=== PATIENT | male | born 2000 | race Caucasian/White ===

== ENCOUNTER 2020-08-28 10:47 | Emergency (ER) | payer BC ==
[~2020-08-28] VITALS: Ht 182.9 cm; Wt 50.2 kg
[2020-08-28 12:53] LABS: BASOPHILS ABSOLUTE AUTO 0.04 K/mm3 (0.00-0.23); BASOPHILS PERCENT AUTO 1 % (0-2); EOSINOPHILS ABSOLUTE AUTO 0.04 K/mm3 (0.00-0.68); EOSINOPHILS PERCENT AUTO 1 % (0-6); Hematocrit 45.9 % (37.0-53.0); Hemoglobin 15.8 g/dL (13.5-17.5); IMMATURE GRAN ABSOLUTE AUTO 0.02 K/mm3 (0.00-0.10); IMMATURE GRAN PERCENT AUTO 0 % (0-1); LYMPHOCYTES ABSOLUTE AUTO 1.14 K/mm3 (0.84-5.20); LYMPHOCYTES PERCENT AUTO 18 % (21-46); MONOCYTES ABSOLUTE AUTO 0.45 K/mm3 (0.16-1.47); MONOCYTES PERCENT AUTO 7 % (4-13); Mean Corpuscular HGB 28.6 pg (26.0-34.0); Mean Corpuscular HGB Conc 34.4 g/dL (31.5-36.5); Mean Corpuscular Volume 83 fL (80-100); Mean Platelet Volume 11.1 fL (9.1-12.4); NEUTROPHILS ABSOLUTE AUTO 4.74 K/mm3 (1.96-9.15); NEUTROPHILS PERCENT AUTO 74 % (41-73); Platelet Count 221 K/mm3 (150-400); RDW Coefficient Variation 13.1 % (11.7-14.2); RDW Standard Deviation 40.1 fL (35.1-46.3); Red Blood Cell Count 5.52 M/mm3 (4.30-5.90); White Blood Cell Count 6.43 K/mm3 (4.00-11.30)
[2020-08-28 13:22] LABS: Alanine Aminotransfer (ALT/SGP 21 U/L (12-78); Albumin, Blood 4.7 g/dL (3.4-5.0); Albumin/Globulin Ratio 1.4 (0.8-1.8); Alk Phos 85 U/L (58-237); Anion Gap 6 mmol/L (6-16); Aspartate Aminotrans (AST/SGOT 8 U/L (12-37); Bilirubin, Total 0.7 mg/dL (0.1-1.0); Blood Urea Nitrogen 13 mg/dL (8-21); Bun/Creatinine Ratio 14.6 (12.0-20.0); CO2, Blood 25 mmol/L (21-32); Calcium, Blood 9.4 mg/dL (8.5-10.1); Chloride, Blood 108 mmol/L (98-108); Creatinine, Blood 0.89 mg/dL (0.60-1.20); Globulin, Blood 3.3 g/dL (2.2-4.0); Glomerular Filtration Rate >60 (60-); Glucose, Blood 91 mg/dL (70-99); Potassium, Blood 3.7 mmol/L (3.5-5.5); Sodium, Blood 139 mmol/L (136-145)
[2020-08-28 13:53] LABS: U Amphetamine Screen Not Detected; U Barbituate Screen Not Detected; U Benzodiazapine Screen Not Detected; U Buprenorphine Screen Not Detected; U Cannabinoids Screen DETECTED; U Cocaine Screen Not Detected; U Methadone Screen Not Detected; U Methamphetamine Screen Not Detected; U Opiates Screen Not Detected; U Oxycodone Screen Not Detected; U Phencyclidine Screen Not Detected; U Propoxyphene Screen Not Detected
== END 2020-08-28 15:18 | disposition home or self-care (01) ==
LOC: ER 10:47
PROVIDERS: Emergency Medicine
DX: R41.82 Altered mental status, unspecified (principal)
CPT/HCPCS: 36415; 80053; 84443; 85025; 93005; 93010; 99285-25

== ENCOUNTER 2022-04-18 10:05 | Inpatient (IN) | payer BC ==
[~2022-04-18] VITALS: Ht 182.9 cm; Wt 55.0 kg
[2022-04-18 12:00] LABS: BASOPHILS ABSOLUTE AUTO 0.04 K/mm3 (0.00-0.23); BASOPHILS PERCENT AUTO 1 % (0-2); EOSINOPHILS ABSOLUTE AUTO 0.03 K/mm3 (0.00-0.68); EOSINOPHILS PERCENT AUTO 1 % (0-6); Hemoglobin 16.3 g/dL (13.5-17.5); IMMATURE GRAN ABSOLUTE AUTO 0.01 K/mm3 (0.00-0.10); IMMATURE GRAN PERCENT AUTO 0 % (0-1); LYMPHOCYTES ABSOLUTE AUTO 1.57 K/mm3 (0.84-5.20); LYMPHOCYTES PERCENT AUTO 24 % (21-46); MONOCYTES ABSOLUTE AUTO 0.54 K/mm3 (0.16-1.47); MONOCYTES PERCENT AUTO 8 % (4-13); Mean Corpuscular HGB 28.7 pg (26.0-34.0); Mean Corpuscular HGB Conc 34.7 g/dL (31.5-36.5); Mean Corpuscular Volume 83 fL (80-100); Mean Platelet Volume 10.8 fL (9.1-12.4); NEUTROPHILS ABSOLUTE AUTO 4.28 K/mm3 (1.96-9.15); NEUTROPHILS PERCENT AUTO 66 % (41-73); Platelet Count 252 K/mm3 (150-400); RDW Coefficient Variation 13.1 % (11.7-14.2); RDW Standard Deviation 39.3 fL (35.1-46.3); Red Blood Cell Count 5.68 M/mm3 (4.30-5.90); White Blood Cell Count 6.47 K/mm3 (4.00-11.30)
[2022-04-18 12:26] LABS: Albumin, Blood 4.9 g/dL (3.4-5.0); Albumin/Globulin Ratio 1.4 (0.8-1.8); Bilirubin, Total 1.5 mg/dL (0.1-1.0); Bun/Creatinine Ratio 17.9 (12.0-20.0); Calcium, Blood 9.8 mg/dL (8.5-10.1); Creatinine, Blood 0.78 mg/dL (0.60-1.20); Globulin, Blood 3.6 g/dL (2.2-4.0); Potassium, Blood 3.6 mmol/L (3.5-5.5); Total Protein, Blood 8.5 g/dL (6.4-8.2)
--- NOTE | 2022-04-18 18:40 | NUR ---
PT ARRIVED TO UNIT FROM ED. TRANSFERRED WITH MINIMAL ASSISTANCE FROM [place] TO BED. THORAVENT TO L ANTERIOR CHEST WALL. DRESSING CDI. TELE SHOWS ST AT 108. VSS. CALL LIGHT IN REACH. LUNG DIM L SIDE. NO CREPITUS NOTED. DAD AT BEDSIDE.
--- NOTE | 2022-04-19 08:49 | NUR ---
SUMMARY PT MED X 1 FOR PAIN AT THORAVENT INSERT SITE TONIGHT.REPORTED SLEPT FAIRLY WELL. NO EVIDENCE OF AIR LEAK OR CREPITUS. DENIES SOB,WEAK DEEP BREATHE EFFORT,ENC TO USE I.S ENC PO FLUIDS,VOIDING WITHOUT DIFF.
--- NOTE | 2022-04-19 11:47 | NUR ---
pt to water seal per orders. DR EDUARDO IN TO SEE PT. CALL LIGHT IN REACH.
--- NOTE | 2022-04-19 16:37 | NUR ---
IMAGING IN TO SEE PT.
--- NOTE | 2022-04-19 17:21 | NUR ---
PLACED PT BACK TO SUCTION PER DR EDUARDO'S VERBAL ORDER. PT TO REMAIN ON SUCTION T/O NIGHT. REPEAT CHEST XR PLANNED FOR AM.
--- NOTE | 2022-04-19 17:29 | NUR ---
SUMMARY NO ACUTE CHANGES T/O SHIFT. PT SUCTION TURNED OFF THIS AM AND HAD CXR AT 1330, WHEN DR EDUARDO IN TO SEE PT AT 1445, IT WAS NOTED THAT CHEST TUBE WAS CLAMPED. UNCLAMPED CHEST TUBE AND PLACED TO WATER SEAL. REPEAT CHEST XR COMPLETED AT 1630. DR EDUARDO IN TO SEE PT THIS EVENING AND ORDERED PT TO BE PLACED BACK TO SUCTION THROUGH NIGHT. PLAN TO REPEAT CHEST XR IN AM. FATHER AT BEDSIDE. PT AGREEABLE WITH PLAN. PT MEDICATED ONCE WITH TYLENOL FOR POSTERIOR L LUNG PAIN. INCENTIVE SPIROMETER AT BEDSIDE, ENCOURAGED PT TO USE. CALL LIGHT IN REACH.
--- NOTE | 2022-04-19 23:00 | NUR ---
PTS RHYTHMN PER TELE @ 3727 SINUS.NOW SHOWING WANDERING ATRIAL PACEMAKER WITH RATE OF 71.I CONFIRMED WITH PCU WORD PROCESSING MACHINE OPERATOR. ON ADMITPT WAS SINUS TACH.I CALLED DOCTOR AND RECEIVED ORDERS FOR 12 LEAD EKG.PT ASYMPTOMATIC.
--- NOTE | 2022-04-20 02:54 | NUR ---
EKG WAS COMPLETED.HOWEVER,WAS DIFF TO OBTAIN DUE TO ARTIFACT/TREMOR. PCU REPEATED EKG-PT REPORTED HAD PREVIOUSLY BEEN TOLD HE HAD A MURMUR AND ALSO REPORTED TO POTATO BUCKER THAT HE WAS ALSO PREVIOUSLY TOLD THEY HAD DIFFICULTY WITH EKG DUE TO HIM BEING SO THIN.I HAD CRYSTAL ACCOUNTING SYSTEMS MANAGERCHIEF LIBRARIAN WORK WITH BLIND REVIEW PER DR АНДРЕЙ WOLFE AND NO ACUTE CONCERNS NOTED. PT REMAINS ASYMPTOMATIC.
--- NOTE | 2022-04-20 07:10 | NUR ---
SUMMARY CXR COMPLETED.PENDING RESULTS.PT SLEPT QUIETLY TONIGHT. CHEST TUBE PATENT TO SX,SCANT SEROUS DRNG IN PLEURAVAC,IS NOT NEW.
--- NOTE | 2022-04-21 05:05 | NUR ---
POD3 FOR A ANTERIOR THORAVENT PLACEMENT. VSS. LUNG MEJIAS REMAIN CLEAR. NO DRAINAGE NOTED FROM THE THORAVENT. PT HAS NOT REPORTED ANY CP OR SOB. C/T REMAINS ON SUCTION. NO CREPITUS NOTED. PT SLEPT ON AND OFF T/O THE NIGHT. TOLLERATING PO INTAKE W/O N/V. PLAN FOR PT TO WATERSEAL TODAY AND HAVE A REPEAT C-XRAY. MEDICATED FOR PAIN WITH TORADOL. THE PATIENT IS CURRENTLY RESTING IN BED, IN NO DISTRESS, CALL LIGHT IN REACH.
--- NOTE | 2022-04-21 05:39 | NUR ---
I/O PT DENIES URGE TO VOID T/O THE NIGHT, TOLLERATING PO INTAKE. WILL ENCOURAGE TO VOID AGAIN WHEN PT AWAKENS
--- NOTE | 2022-04-21 19:47 | NUR ---
ROUNDING PT REQUESTED TO ONLY BE ROUNDED ON AT 0000 AND 0400 WHEN RESPIRATORY ASSESSMENTS NEED TO BE DONE, PT PLANS TO CALL IF HE NEEDS ANYTHING BETWEEN THOSE TIMES
--- NOTE | 2022-04-21 20:04 | NUR ---
SHIFT SUMMARY PT HAS REMAINED STABLE T/O SHIFT. CT TO DRY SX, NO INCREASED SOB OR CREPITIS NOTED. WILL REPEAT CXR IN AM.
--- NOTE | 2022-04-22 04:54 | NUR ---
POD4 FOR THORAVENT PLACEMENT. VSS. PT HAS NO C/O SOB OR CP T/O THE NIGHT. ALL LUNG MEJIAS ARE CLEAR. PT REMAINED ON RA T/O THE NIGHT. NO NEW DRAINAGE NOTED IN THE PLEURAVAC. DRIED BLOOD NOTED AROUND THE THORAVENT, THIS HAS NOT INCREASED T/O THE NIGHT. PT SLEPT ON AND OFF, MEDICATED WITH TORADOL ONCE. VOIDING W/O DIFFICULTY AND TOLLERATING PO INTAKE. PLAN FOR PT TO HAVE A CHEST XRAY TODAY AND POTENTIALLY TRIAL CLAMPING THE TUBE. THE PATIENT IS CURRENTLY RESTING IN BED, IN NO DISTRESS, CALL LIGHT IN REACH
--- NOTE | 2022-04-22 14:43 | NUR ---
RESTING IN BED, DENIES ANY NEED FOR PAIN MEDS AT THIS TIME, DENIES ANY SOB, CHEST TUBE DSG C/D/I, REPORTS DISCOMFORT FROM CHEST TUBE IS "BETTER TODAY" NO ACUTE CHANGES THIS SHIFT.
--- NOTE | 2022-04-23 04:50 | NUR ---
GOAL UMPIRE SUMMARY NO ACUTE CHANGES THIS SHIFT. PT AAOX4 AND PLEASANT. INDEPENDENT IN RODRIGUEZ ASIDE FROM SOME ASSIST WITH CHEST TUBE. PT DENIES SOB TONIGHT. NO INCREASE TO CT DRAINAGE NOTED. CT STILL TO SUCTION. PT HAS DENIED THE NEED FOR PAIN MEDICATIONS TONIGHT. PT STATES PAIN LEVEL IS "THE BEST ITS BEEN SINCE I'VE BEEN HERE". PT HAS RESTED THROUGH THE NIGHT. REPEAT CXR LATER THIS AM. VSS, WILL CONTINUE TO MONITOR.
--- NOTE | 2022-04-23 12:35 | NUR ---
1145 dr Walters here, small air leak noted when patient asked to cough. new orders received.
--- NOTE | 2022-04-23 17:35 | NUR ---
PT HAS DENIED ANY NEED FOR PAIN MED THROUGHOUT SHIFT. DENIES SOB. THORAvent continues to wall suction.slight air leak noted only with cough
--- NOTE | 2022-04-24 05:12 | NUR ---
GENERATION ENGINEER SUMMARY PT PLACED ON WATER SEAL AT MIDNIGHT TONIGHT. NO CHANGES THUS FAR. PT CONTINUES TO DENY SOB OR PAIN. NO AIR LEAKS OR FLUID TIDALING NOTED TO PLEUREVAC. PT HAS RESTED MOST OF THE NIGHT WITH NO COMPLAINTS. VSS, WILL CONTINUE TO MONITOR.
--- NOTE | 2022-04-24 13:48 | NUR ---
DR TOBIAS HERE TO SPEAK WITH PATIENT AND PATIENTS FATHER REGARDING PTS NEED FOR TRANSFER TO [facility] FOR PLEURODISIS. CHEST TUBE RECONNECTED TO WALL SUCTION PER DR TOBIAS,
--- NOTE | 2022-04-24 17:09 | NUR ---
pt denies pain or sob throughout shift. left anterior chest tube in place to water seal. pt and his father in agreement with plan to transfer to another hospital to undergo pleurodesis when bed is available
--- NOTE | 2022-04-25 17:23 | NUR ---
SHIFT SUMMARY PT CHEST TUBE REMAINS ATTACHED TO SUCTION AT -20. NO BUBBLES IN AIR LEAK CHAMBER AND NO TIDLING SEEN. PT DENIES SOB, LUNG SOUNDS CLEAR T/O. STILL AWAITING TRANSFER TO [facility].
--- NOTE | 2022-04-26 04:33 | NUR ---
SHIFT SUMMARY PT RESTED WELL T/O NIGHT. AAOX4. DENIES DISCOMFORT T/O SHIFT. NO INCREASED SOB. CHEST TUBE TO WALL SUCTION, NO TIDLING/BUBBLING. INDEPENDENT IN ROOM. GOOD PO INTAKE + URINE OUTPUT. NO ACUTE CHANGES OVER NIGHT. VSS. PT CURRENTLY RESTING IN BED WITH CALL LIGHT IN REACH.
--- NOTE | 2022-04-26 19:29 | NUR ---
SHIFT SUMMARY NO CHANGES IN CHEST TUBE. -20 SUCTION, NO AIR LEAK SEEN AND NO TIDLING. PT CONTINUES TO DENY SOB AND LUNG SOUNDS CLEAR T/O. PLAN IS TO PUT CHEST TUBE TO WATER SEAL AT 1159 AND REPEAT XRAY IN THE MORNING.
--- NOTE | 2022-04-27 00:17 | NUR ---
PT PLACED ON WATERSEAL AT 2359 FOR A CXR THIS AM, EDUCATED ON NOTIFYING STAFF IF HE EXPERIENCES INCREASED SOB, CP, INCREASED WOB, OR OVERALL DISCOMFORT RELATED TO BREATHING. PT EXPRESSED UNDERSTANDING. CALL LIGHT IN REACH
--- NOTE | 2022-04-27 04:51 | NUR ---
POD9 FOR THROAVENT PLACEMENT, MINIMAL SS OUTPUT NOTED IN TUBING. PT HAS BEEN ON WATERSEAL SINCE 2358 FOR A REPEAT CXR THIS AM. PT HAS NOT REPORTED ANY INCREASE IN WOB OR SOB, SATS REMAINS >95% ON RA. GOOD AIR MOVEMENT HEARD IN ALL LUNG MEJIAS, NO CREPITOUS NOTED. PT SLEPT WELL T/O THE NIGHT. VOIDING AND PASSING STOOL W/O DIFFICULTY. TOLLERING PO INTAKE. ABULATING INDEPENDENTLY IN ROOM. NO C/O PAIN T/O THE NIGHT. PLAN OF CARE IS TO BE DETERMINED BY THIS AM'S XRAY. THE PATIENT IS CURRENTLY RESTING IN BED, IN NO DISTRESS, CALL LIGHT IN REACH.
--- NOTE | 2022-04-27 17:13 | NUR ---
SHIFT SUMMARY PATIENT ALERT AND ORIENTED THROUGHOUT SHIFT. CHEST TUBE TO LEFT UPPER CHEST WALL TO WATER SEAL, DC'D LATE IN AFTERNOON BY DR TOBIAS PULMONARY/MATERNAL FETAL PHYSICIAN. PATIENT TOLERATED REMOVAL WELL. DENIES SHORTNESS OF BREATH OR CHEST PAIN. REPORTS MILD SORENESS TO TUBE SITE AND MUSCULOSKELETAL STIFFNESS TO LEFT SHOULDER. MILD LEFT UPPER PNEUMO REMAINS UNCHANGED TO DR TOBIAS AND CXR AND CHEST CT. PLAN IS TO CHECK XR IN AM AND DISCHARGE PATIENT. HE WILL FOLLOW UP WITH LOCAL MECHANICAL ASSEMBLY IN ABOUT 1 WEEK WITH ANOTHER CXR. TOLERATING REGULAR DIET AND LIQUIDS. VOIDING WELL. INDEPENDENT IN ROOM. GAUZE DRESSING WITH TAPE OVER SITE.
--- NOTE | 2022-04-28 01:15 | NUR ---
PT CALLED [employer]ASTE DISPOSAL PLANT OPERATOR SAYING HE FELT LIKE HE HAS A RECURRENCE OF LUNG ISSUE THAT BROUGHT HIM TO HOSPITAL.WHEN I ENTERED ROOM,PT WAS RESTING ON R SIDE.REPORTS HE BELIEVES HE HAS "TAMAYO SIGN" STATED "ITS WHEN THERE IS CLICKING TO THE BREAST BONE WHEN I LAY ON MY BACK OR L SIDE." PT REPORTS WAS SAME AT HOME PRE ADMIT.PT ALSO REPORTS RECURRENCE L SIDED PAIN.PTS L LUNG SOUNDS DECREASED FROM PRIOR AUSCULTATION 2229.SEE VS.PT DENIES SOB,DOES NOT APPEAR TO HAVE ANY INCREASED WOB.SATS 100% ON R/A.RR 18.COLOR PALE PINK BASELINE.PT ALREADY HAD CXR ORDER FOR AM,SO WE CALLED IT UP SOONER,PLACED CONT PULSE OX AND NOTIFIED DR PATEL.DR PATEL READ CXR AND CONFIRMED RECURRENCE.PT IS TO REMAIN ON CONTINUOUS BIOX AND DR TO BE NOTIFIED IF SIGNS OF RESP DISTRESS. DR PATEL REPORTS SHE WILL NOTIFY DIRECTOR OF DIETARY
--- NOTE | 2022-04-28 07:45 | NUR ---
SUMMARY PT WTIH NO FURTHER CHANGES,SATS 97-100% NO RESP DISTRESS NOTED.FATHER AT BEDSIDE THIS AM. WAITING INFO PER PULMONARY.
--- NOTE | 2022-04-28 18:39 | NUR ---
SHIFT SUMMARY PATIENT ALERT AND ORIENTED THROUGHOUT SHIFT. PLACED ON 15L NONREBREATHER MASK THIS AM AND CXR CHECKED AT 3 PM. L APICAL PNEUMO HAD SLIGHTLY ENLARGED. DR STEPHEN PLACED A NEW CHEST TUBE IN SAME SITE PREVIOUS. PATIENT EXPERIENCED A VASOVAGAL RESPONSE WITH LIGHT HEADEDNESS, NAUSEA, HYPOTENSION, BRADYCARDIA, SWEATING. RESOLVED QUICKLY AFTER CHEST TUBE PLACEMENT COMPLETE. CHEST TUBE TO WALL SUCTION, TIDALING WITH NO AIR LEAK. MEDICATED FOR PAIN PER EMAR. FATHER PRESENT IN ROOM DURING AFTERNOON. ON RA AT THIS TIME. CXR ORDERED FOR AM.
--- NOTE | 2022-04-29 05:29 | NUR ---
MEDICAL TECHNICAL WRITER SUMMARY NO ACUTE CHANGES THIS SHIFT. PT AAOX4 AND PLEASANT. CHEST TUBE TO SUCTION. SOME TIDALING NOTED WHEN PT TAKES DEEP BREATHES BUT NO LEAKS PRESENT. PT DENIES SOB. ONLY COMPLAINT IS SOME PAIN AT CHEST TUBE INSERTION SITE WITH DEEP BREATH OR COUGH. O2 SATS 98-100% THROUGH THE NIGHT. VSS, WILL CONTINUE TO MONITOR.
--- NOTE | 2022-04-29 08:08 | NUR ---
TRANSFER UPDATE RECEIVED CALL FROM [facility], PATIENT REMAINS ON TRANSFER LIST WITH NO FORECASTED ACCEPTANCE THEY CONTINUE TO BE FULL & HOLDING PATIENTS.
--- NOTE | 2022-04-29 17:08 | NUR ---
SHIFT SUMMARY PT DENIES SHORTNESS OF BREATH DURING SHIFT. CHEST TUBE CONTINUES TO SHOW TIDLING AND A VERY INTERMITTENT BUBBLING WITH DEEP INSPIRATION. PAIN WELL CONTROLLED PER EMAR. CURRENTLY STILL AWAITING TRANSFER TO HIGHER LEVEL OF CARE FOR PROCEDURE TO FIX LUNG.
--- NOTE | 2022-04-30 05:41 | NUR ---
ACCIDENT INVESTIGATOR SUMMARY NO ACUTE CHANGES THIS SHIFT. PT CHEST TUBE REMAINS ON WALL SUCTION. TIDALING NOTED WITH DEEP BREATHS, NO AIR LEAKS NOTED. SMALL AMOUNTS OF SEROSANGUINOUS DRAINAGE IN TUBE. PT PLEASANT AND COOPERATIVE BUT CLEARLY FRUSTRATED WITH HIS LONG STAY IN THE HOSPITAL. PT AWAITING TRANSFER TO HIGHER LEVEL OF CARE FOR PLEURODESIS. VSS, WILL CONTINUE TO MONITOR.
--- NOTE | 2022-04-30 16:03 | NUR ---
SHIFT SUMMARY PT HAS BEEN IND IN ROOM, GETS HIMSELF UP TO BSC WITH NO INCREASED SOB. LUNG SOUNDS CLEAR, SLIGHT DIMINISHED IN [place]. SUCTION REMAINS AT -20. NO CHANGE IN SANGUINOUS DRAINAGE IN WATER SEAL. PT STILL AWAITING BED AVAILABILITY.
--- NOTE | 2022-04-30 17:07 | NUR ---
4611 ASSUMED CARE OF PATIENT. PT VISITING WITH HIS FATHER. PT REPORTS PAIN 5/10 AT CHEST TUBE INSERTION SITE.
--- NOTE | 2022-04-30 17:09 | NUR ---
1700 DR EDUARDO HERE TO SEE PATIENT. CHEST TUBE PRESSURE INCREASED TO -[address] EDUARDO
--- NOTE | 2022-04-30 17:31 | NUR ---
PT DENIES ANY CHANGES IN REPIRATORY STATUS AFTER CHANGE TO -30 ON CHEST TUBE
--- NOTE | 2022-05-01 04:22 | NUR ---
POD3 FOR C/T PLACEMENT. DRESSING IS C/D/I. NO CREPITOUS NOTED, NO TIDLING NOTED IN PLEURAVAC. PT REMAINED ON -30 SUCTION T/O THE NIGHT. DENIES ANY INCREASE IN SOB OR CP, PT DID REPORT SOME PAIN RELATED TO C/T INSERTION, MEDICATED ONCE WITH OXY. VSS. PT SLEPT ON AND OFF T/O THE NIGHT. VSS. PT TOLLERATING PO INTAKE W/O N/V. VOIDING W/O DIFFICULTY, PASSING FLATTUS. PLAN FOR PT TO HAVE A CXR THIS AM. THE PT IS CURRENTLY SLEEPING, IN NO DISTRESS, CALL LIGHT IN REACH.
--- NOTE | 2022-05-01 17:58 | NUR ---
PT HAS DENIED NEED FOR PAIN MED THROUGHOUT SHIFT. CHEST TUBE IN PLACE LEFT ANT CHEST AT -30. PTS FATHER IN TO VISIT THIS SHIFT.
--- NOTE | 2022-05-02 04:37 | NUR ---
POD4 FOR NEW C/T INSERTION. DRESSING REMAINS C/D/I. SUCTION REMAINS AT -30. PT REPORTS NO NEW SOB OR CP, REMAINS ON RA T/O THE NIGHT. NO NEW DRAINAGE NOTED IN TUBING. NO CREPITUS NOTED. PT SLEPT WELL T/O THE NIGHT. TOLLERATING PO INTAKE, VOIDING W/O DIFFICULTY. REMAINS INDEPENDENT IN ROOM. PLAN FOR CXR THIS AM, AWAITING BED AT [facility] IN [place]. THE PATIENT IS CURRENTLY SLEEPING, IN NO DISTRESS, CALL LIGHT IN REACH.
--- NOTE | 2022-05-02 12:13 | NUR ---
THIS NURSE CALLED [facility] AT 1030 THIS MORNING AND BOTH SAID THAT THIS PATIENT IS ON THE WAITING LIST BUT NO OPEN BEDS AT THIS TIME.
--- NOTE | 2022-05-02 16:40 | NUR ---
SHIFT SUMMARY: NO SIGNIFICANT CHANGES. PATIENT DENIES THE NEED OF PAIN MEDICATIONS THROUGHOUT SHIFT. CHEST TUBE IS IN PLACE ON LEFT ANTERIOR CHEST WALL WITH TEGADERM DRESSING THAT IS INTACT. CHEST TUBE SUCTION IS STILL SET TO -30MM. PATIENT DENIES SOB OR CHEST PAIN. PATIENT IS ON RA WITH >90% OXYGEN SATS AND IS ALSO ON CONTINUOUS BIOX. HE IS TOLERATING PO INTAKE AND IS VOIDING/HAVING BMS. CALLS APPROPRIATELY. CALL LIGHT WITHIN REACH. STILL WAITING FOR AN OPEN BED. THIS NURSE CALLED THIS MORNING AND AGAIN AT 1530 TO [facility]OTH [facility] WITH NO OPEN BEDS STILL AT THIS TIME.
--- NOTE | 2022-05-03 07:35 | NUR ---
LYING IN SEMI FOWLERS WITH EYES CLOSED. HAS RESTED OFF AND ON THIS SHIFT. AAO X4, DICKINSON, FOLLOWS ALL COMMANDS. DENIES FURTHER NEEDS OR WANTS AT THIS TIME. CHEST TUBE TO LEFT REMIAIN PATENT, NO AIR EMPHASEMA NOTED. REMAINS TO WATERSEAL AND LCWS AT -30MM. SAFETY MEASURES IN PLACE. WILL GIVE HAND OFF TO ONCOMING SHIFT USING SBAR.
--- NOTE | 2022-05-03 16:52 | NUR ---
SHIFT SUMMARY PT CHEST TUBE TO WATER SEAL WITH SUCTION AFTER BY PHYSICIAN AT AROUND NOON. PT HAS DENIED SHORTNESS OF BREATH OR CHEST PAIN T/O SHIFT. HE CONTINUES TO BE INDEPENDANT IN ROOM. STILL AWAITING PLACEMENT AT [facility].
--- NOTE | 2022-05-04 05:29 | NUR ---
SHIFT SUMMARY PT A&OX4, PLEASANT AND COOPERATIVE WITH CARE. NO ACUTE CHANGES, VSS. PT DID NOT NEED PAIN COVERAGE THIS SHIFT. INDEPENDENT TO BSC. NO COMPLAINTS OF SOB/CP, CHEST TUBE TO WATER-SEAL. TOLERATING PO INTAKE. CALLS APPROPRIATELY, CALL LIGHT WITHIN REACH. PT STILL AWAITING PLACEMENT AT [facility] OR [facility] FOR PLEURODESIS.
--- NOTE | 2022-05-04 10:13 | NUR ---
CHEST TUBE DISCONNECTED FROM WATER SEAL AT 0900. PT DENIES SOB AT THIS TIME. DR STEPHEN SPOKE WITH PATIENT, IF SYMPTOMS RETURN HE SHOULD RETURN TO BED. THIS RN WILL ORDER A STAT X-RAY AND NOTIFY DR. STEPHNE. PT AWARE OF PLAN AND IS AGREEABLE.
--- NOTE | 2022-05-04 16:27 | NUR ---
SHIFT SUMMARY PT REMAINS OFF WATER SEAL, HE CONTINUES TO DENY SHORTNESS OF BREATH OR DIFFICULTY BREATHING. AMBULATING TO RESTROOM INDEPENDENTLY. PT WILL CALL IF RETURNING SYMPTOMS, PLAN WILL BE TO RECONNECT TO WATERSEAL AND SUCTION. REPEAT XRAY ORDERED FOR THE MORNING. STILL AWAITING PLACEMENT.
--- NOTE | 2022-05-05 04:33 | NUR ---
SHIFT SUMMARY PT A&OX4, PLEASANT AND COOPERATIVE WITH CARE. PT DID NOT REQUIRE PAIN COVERAGE THIS SHIFT. CHEST TUBE TO [place] SINCE YESTERDAY. TOLERATING PO INTAKE. INDEPENDENT IN ROOM. REPEAT XR IN THE AM TO REASSESS LUNG STATUS. CALLS APPROPRIATELY, CALL LIGHT WITHIN REACH. STILL AWAITING PLACEMENT
[2022-05-05 06:09] LABS: Hematocrit 43.6 % (37.0-53.0); Hemoglobin 15.1 g/dL (13.5-17.5); Mean Corpuscular HGB 28.8 pg (26.0-34.0); Mean Corpuscular HGB Conc 34.6 g/dL (31.5-36.5); Mean Corpuscular Volume 83 fL (80-100); Mean Platelet Volume 10.5 fL (9.1-12.4); Platelet Count 235 K/mm3 (150-400); RDW Coefficient Variation 13.1 % (11.7-14.2); RDW Standard Deviation 39.6 fL (35.1-46.3); Red Blood Cell Count 5.24 M/mm3 (4.30-5.90); White Blood Cell Count 6.44 K/mm3 (4.00-11.30)
[2022-05-05 06:33] LABS: Albumin, Blood 3.8 g/dL (3.4-5.0); Albumin/Globulin Ratio 1.1 (0.8-1.8); Bilirubin, Total 0.6 mg/dL (0.1-1.0); Bun/Creatinine Ratio 20.1 (12.0-20.0); Calcium, Blood 9.4 mg/dL (8.5-10.1); Creatinine, Blood 0.84 mg/dL (0.60-1.20); Globulin, Blood 3.5 g/dL (2.2-4.0); Total Protein, Blood 7.3 g/dL (6.4-8.2)
--- NOTE | 2022-05-05 19:36 | NUR ---
SHIFT SUMMARY PT HAS BEEN UP TO BATHROOM IND T/O DAY. AMBULATED LONG DISTANCE w/ STAFF, DENIES ANY CHANGES w/ BREATHING, HAS DENIED SHORTNESS OF BREATH T/O SHIFT. EATING, DRINKING, VOIDING.
--- NOTE | 2022-05-06 04:43 | NUR ---
POD 8 FOR C/T PLACEMENT. PT HAS REMAINED UNHOOKED FROM PLEURAVAC T/O THE NIGHT. NO INCREASE IN WOB, NO SOB, OR CP. PT SLEPT WELL T/O THE NIGHT. ENCOURAGED TO AMBULATE BEFORE GOING TO BED. PT HAS REMAINED INDEP IN ROOM T/O THE NIGHT. TOLLERATING PO INTAKE, VOIDING W/O DIFFICULTY. NO C/O PAIN T/O THE NIGHT. PLAN FOR CXR THIS AM. THE PATIENT IS CURRENTLY SLEEPING, IN NO DISTRESS, CALL LIGHT IN REACH.
--- NOTE | 2022-05-06 09:50 | NUR ---
[facility] CALLED. NO BEDS AT THIS TIME.
--- NOTE | 2022-05-06 14:50 | NUR ---
POST AMBULATION NO CHANGES IN BREATHING
--- NOTE | 2022-05-06 18:45 | NUR ---
CT CLAMPED PER DR EDUARDO @ 8190. AT THIS TIME, PT DENIES CHANGES IN BREATHING.
--- NOTE | 2022-05-07 04:54 | NUR ---
SHIFT SUMMARY: A&0X4. CT REMAINS CLAMPED WITH STOPCOCK. DENIED CHEST PAIN AND SOB T/O THE SHIFT. DENIED PAIN, REPORTED MILD DISCOMFORT AT SITE. RESTED COMFORTABLY. VSS. PLANS TO REPEAT CHEST XRAY IN THE AM. CALL LIGHT WITHIN REACH. RESTING AT THIS TIME. WILL GIVE REPORT TO DAYTIME RN.
--- NOTE | 2022-05-07 09:59 | NUR ---
CHEST TUBE DC'D BY DR. GARCIA, 2X2 GAUZE AND OPSITE PLACED ON L ANT. CHEST, DIME SIZED SEROUSANG. DRAINAGE NOTED ON 2X2, MONITOR PER DR. GARCIA, AND TO CALL IF SATURATED, PT TOLERATED PROCEDURE WELL, DENIES ANY SOB, PAIN OR ANY DISCOMFORT AT THIST TIME, CONT. TO MONITOR FOR ANY CHANGES.
[2022-05-07] MEDS ORDERED: ACET325 PO (14:04)
--- NOTE | 2022-05-07 14:19 | NUR ---
PT HAD NO C/O OF SOB OR ANY DISCOMFORT SINCE CHEST TUBE DC'D, DC ORDERS NOTED FROM DR. STUBBS, DC INSTRUCTIONS GIVEN, VERBALIZED UNDERSTANDING.
== END 2022-05-07 14:23 | disposition home or self-care (01) | DRG 201 ==
LOC: ER 10:05 → ERHOLD 10:06 → SURS 10:06
PROVIDERS: Internal Medicine; Physician Assistant; ADMIT Internal Medicine
PROC: 0W9B30Z Drainage of Left Pleural Cavity with Drainage Device, Percutaneous Approach (ICD-10-PCS; principal; 2022-04-18)
PROC: 0W9B30Z Drainage of Left Pleural Cavity with Drainage Device, Percutaneous Approach (ICD-10-PCS; 2022-04-28)
DX: J93.11 Primary spontaneous pneumothorax (principal)
CPT/HCPCS: 36415; 71045; 71046; 71250; 80053; 82103; 85025; 85027; 93005; 93010; 94762; 96375; A9270; G0378; J1885; J2060; J7030

== ENCOUNTER 2022-05-08 14:12 | Emergency (ER) | payer BC ==
[~2022-05-08] VITALS: Ht 182.9 cm; Wt 59.0 kg
[~2022-05-08 14:12] MED LIST: ACET325 PO
== END 2022-05-08 15:17 | disposition home or self-care (01) ==
LOC: ER 14:12
DX: J93.83 Other pneumothorax (principal)
CPT/HCPCS: 71045